=== PATIENT | female | born 1980 | race Caucasian/White ===

== ENCOUNTER 2017-01-11 17:37 | Emergency (ER) | payer OTHER ==
[2017-01-11 18:27] LABS: BILIRUBIN NEGATIVE (NEGATIVE); BLOOD NEGATIVE Ery/uL (NEGATIVE); CLARITY CLEAR (CLEAR); COLOR YELLOW (YELLOW); GLUCOSE (U) NORMAL (NORMAL); KETONE (U) NEGATIVE (NEGATIVE); LEUKOCYTES NEGATIVE Leu/uL (NEGATIVE); NITRITE NEGATIVE (NEGATIVE); PROTEIN NEGATIVE (NEGATIVE); SPECIFIC GRAVITY 1.015 (1.001-1.030); UROBILINOGEN 0.2 mg/dL (0.2-1.0)
[2017-01-11 18:37] LABS: BASOPHIL 0.2 % (0-2); EOSINOPHIL 1.2 % (0-5); HCT 42.3 % (37.0-47.0); HGB 14.2 g/dl (12.5-16.0); LYMPHOCYTE 24.6 % (15-48); MCH 31.3 pg (25.0-31.0); MCHC 33.6 g/dL (32.0-36.0); MCV 93.2 fL (78.0-100.0); MONOCYTE 7.4 % (0-12); MPV 10.3 fL (6.0-9.5); NEUTROPHIL 66.6 % (41-80); PLT 267 K/uL (150-400); RBC 4.54 M/uL (4.20-5.40); RDW 12.3 % (11.5-14.0); WBC 8.7 K/uL (4.0-10.5)
[2017-01-11 19:00] LABS: ALBUMIN 4.1 g/dL (3.5-5.0); BILIRUBIN - TOTAL 0.5 mg/dL (0.1-1.0); CREATININE 0.7 mg/dL (0.5-1.0); POTASSIUM 4.1 mmol/L (3.5-5.1); TOTAL PROTEIN 7.1 g/dL (6.4-8.3)
[2017-01-11 19:04] LABS: LACTIC ACID 1.3 mmol/L (0.5-2.2)
== END 2017-01-11 20:26 | disposition home or self-care (01) ==
LOC: FER 17:37
PROVIDERS: Nurse Practitioner Family
DX: R19.7 Diarrhea, unspecified (principal); R10.9 Unspecified abdominal pain; Z90.49 Acquired absence of other specified parts of digestive tract
CPT/HCPCS: 36415; 80053; 81003; 82150; 83605; 83690; 85025; J1885

== ENCOUNTER 2017-04-24 23:42 | Emergency (ER) | payer OTHER ==
[2017-04-25 01:00] LABS: BILIRUBIN NEGATIVE (NEGATIVE); BLOOD TRACE-INTACT Ery/uL (NEGATIVE); CLARITY CLEAR (CLEAR); COLOR YELLOW (YELLOW); GLUCOSE (U) TRACE mg/dL (NORMAL); KETONE (U) TRACE mg/dL (NEGATIVE); LEUKOCYTES 2+ Leu/uL (NEGATIVE); NITRITE NEGATIVE (NEGATIVE); PROTEIN TRACE (LOW) mg/dL (NEGATIVE); UROBILINOGEN >=8.0 mg/dL (0.2-1.0); pH 6.5 (5.0-9.0)
[2017-04-25 01:04] LABS: BACTERIA 3+; SQUAMOUS EPITHELIAL CELLS RARE
[2017-04-25 01:23] LABS: BASOPHIL 0.4 % (0-2); EOSINOPHIL 2.7 % (0-5); HCT 38.8 % (37.0-47.0); HGB 13.3 g/dl (12.5-16.0); LYMPHOCYTE 16.4 % (15-48); MCH 32.1 pg (25.0-31.0); MCHC 34.3 g/dL (32.0-36.0); MCV 93.7 fL (78.0-100.0); MPV 10.5 fL (6.0-9.5); NEUTROPHIL 65.5 % (41-80); PLT 202 K/uL (150-400); RBC 4.14 M/uL (4.20-5.40); RDW 11.9 % (11.5-14.0)
[2017-04-25 01:40] LABS: ALBUMIN 3.5 g/dL (3.5-5.0); BILIRUBIN - TOTAL 0.3 mg/dL (0.1-1.0); CREATININE 0.7 mg/dL (0.5-1.0); GLOBULIN (CALCULATION) 3.4 g/dL (2.2-4.2); POTASSIUM 3.9 mmol/L (3.5-5.1); TOTAL PROTEIN 6.9 g/dL (6.4-8.3)
== END 2017-04-25 02:05 | disposition home or self-care (01) ==
LOC: FER 23:42
PROVIDERS: Emergency Medicine
DX: N39.0 Urinary tract infection, site not specified (principal); Z90.49 Acquired absence of other specified parts of digestive tract; Z98.51 Tubal ligation status
CPT/HCPCS: 36415; 80053; 81001; 85025; 99283

== ENCOUNTER 2021-04-12 14:49 | Emergency (ER) | payer OTHER ==
[2021-04-12 15:51] LABS: BASOPHIL 0.8 % (0-2); HCT 40.2 % (37.0-47.0); HGB 13.8 g/dl (12.5-16.0); LYMPHOCYTE 31.8 % (15-48); MCH 33.3 pg (25.0-31.0); MCHC 34.3 g/dL (32.0-36.0); MCV 96.9 fL (78.0-100.0); MONOCYTE 9.3 % (0-12); MPV 10.5 fL (6.0-9.5); NEUTROPHIL 54.7 % (41-80); NRBC 0; PLT 248 K/uL (150-400); RBC 4.15 M/uL (4.20-5.40); RDW 11.9 % (11.5-14.0); WBC 9.6 K/uL (4.0-10.5)
[2021-04-12 16:05] LABS: ALBUMIN 3.8 g/dL (3.4-5.0); BILIRUBIN - TOTAL 0.4 mg/dL (0.2-1.0); BUN/CREAT RATIO (CALC) 16.5 RATIO; CREATININE 0.91 mg/dL (0.51-0.95); GLOBULIN (CALCULATION) 3.7 g/dL; POTASSIUM 3.8 mmol/L (3.5-5.1); TOTAL PROTEIN 7.5 g/dL (6.4-8.2)
[2021-04-12 16:06] LABS: BILIRUBIN NEGATIVE (NEGATIVE); BLOOD NEGATIVE Ery/uL (NEGATIVE); CLARITY CLEAR (CLEAR); COLOR YELLOW (YELLOW); GLUCOSE (U) NORMAL (NORMAL); LEUKOCYTES NEGATIVE Leu/uL (NEGATIVE); NITRITE NEGATIVE (NEGATIVE); PROTEIN NEGATIVE (NEGATIVE); UROBILINOGEN 0.2 mg/dL (0.2-1.0)
[2021-04-12 16:11] LABS: AMPHETAMINES NEGATIVE (NEGATIVE); BARBITURATES NEGATIVE (NEGATIVE); ECSTASY (MDMA) NEGATIVE (NEGATIVE); MARIJUANA (THC) POSITIVE (NEGATIVE); METHADONE NEGATIVE (NEGATIVE); OPIATES NEGATIVE (NEGATIVE); OXYCODONE NEGATIVE (NEGATIVE)
== END 2021-04-12 19:17 | disposition home or self-care (01) ==
LOC: FER 14:49
PROVIDERS: Nurse Practitioner Family
DX: R07.89 Other chest pain (principal); M79.602 Pain in left arm; F17.210 Nicotine dependence, cigarettes, uncomplicated
CPT/HCPCS: 36415; 71046; 80053; 80305; 81003; 84484; 85025; 93005; J1885